=== PATIENT | female | born 2000 | race African-American/Black ===

== ENCOUNTER 2022-07-18 20:07 | Emergency (ER) | payer OTHER ==
[2022-07-18] MEDS ORDERED: Dexamethasone 4 MG TAB ONE (21:23)
== END 2022-07-18 21:20 | disposition home or self-care (01) ==
LOC: CSHERS 20:07
DX: J02.8 Acute pharyngitis due to other specified organisms (principal)
CPT/HCPCS: 99283; J8540

== ENCOUNTER 2022-07-22 08:01 | Emergency (ER) | payer OTHER | END 2022-07-22 09:05 | disposition home or self-care (01) | LOC: CSHERS 08:01 | DX: H10.9 Unspecified conjunctivitis (principal) | CPT/HCPCS: 99282 ==

== ENCOUNTER 2024-05-27 11:07 | Emergency (ER) | payer OTHER ==
[2024-05-27 12:02] LABS: Bilirubin Neg (Negative); Blood, Urine 250 (Negative); Clarity Slightly Cloudy (Clear); Glucose, Urine (Dipstick) Normal (Negative); Ketone, Urine Negative (Negative); Leukocyte 500 (Negative); Nitrite Negative (Negative); Protein, Urine (Dipstick) 15 mg/dl (Neg-Trace); Specific Gravity, Urine 1.015 (1.005-1.030); Urobilinogen Normal mg/dL (Less than 2)
[2024-05-27 12:10] LABS: Bacteria/HPF 2+ HPF (None Seen); CAUTI Indications for Culture Pregnancy; RBC/HPF 21-50 HPF (0-3); Squamous Epithelial 0-3 HPF (0-3)
[2024-05-27 12:11] LABS: Urine Culture Reflex Yes Yes
== END 2024-05-27 13:39 | disposition home or self-care (01) ==
LOC: CSHERS 11:07
DX: O23.41 Unspecified infection of urinary tract in pregnancy, first trimester (principal); N39.0 Urinary tract infection, site not specified; Z3A.00 Weeks of gestation of pregnancy not specified; Z55.6 Problems related to health literacy
CPT/HCPCS: 36415; 76856; 81001; 84702; 86850; 86900; 86901; 87086

== ENCOUNTER 2024-05-29 19:03 | Emergency (ER) | payer OTHER | END 2024-05-29 20:54 | disposition home or self-care (01) | LOC: CSHERS 19:03 | DX: O03.9 Complete or unspecified spontaneous abortion without complication (principal) | CPT/HCPCS: 36415; 84702; 99282 ==

== ENCOUNTER 2024-08-15 14:21 | Emergency (ER) | payer OTHER ==
[2024-08-15] MEDS ORDERED: predniSONE 20 MG TAB ONE (15:01)
[2024-08-15] MEDS ORDERED: Ondansetron ODT 4 MG TAB ONE (15:02)
[2024-08-15] MEDS ORDERED: Loratadine 10 MG TAB PO SCH (15:15)
== END 2024-08-15 16:24 | disposition home or self-care (01) ==
LOC: CSHERS 14:21
DX: L50.9 Urticaria, unspecified (principal)
CPT/HCPCS: 99283; J7512; Q0162

== ENCOUNTER 2024-08-16 00:35 | Emergency (ER) | payer OTHER ==
[2024-08-16] MEDS ORDERED: diphenhydrAMINE 50 MG/ML VIAL ONE (03:15)
[2024-08-16] MEDS ORDERED: Dexamethasone 10 MG/ML VIAL ONE (03:15)
[2024-08-16] MEDS ORDERED: Famotidine/PF 20 mg/2ml Vial ONE (03:15)
== END 2024-08-16 04:55 | disposition home or self-care (01) ==
LOC: CSHERS 00:35
DX: T78.40XA Allergy, unspecified, initial encounter (principal)
CPT/HCPCS: 96374; 96375; J1100; J1200; J3490

== ENCOUNTER 2024-08-16 16:06 | Emergency (ER) | payer OTHER ==
[2024-08-16] MEDS ORDERED: Famotidine/PF 20 mg/2ml Vial ONE (16:16)
[2024-08-16] MEDS ORDERED: EPINEPHrine 1 MG/ML VIAL ONE (16:16)
[2024-08-16] MEDS ORDERED: diphenhydrAMINE 50 MG/ML VIAL ONE (16:16)
[2024-08-16 16:33] LABS: BHCG - Serum Negative (NEGATIVE); Pregs Control Background? CLEAR/WHITE (CLR/WHITE); Pregs Control Bar Appear? YES (CONTROL BAR)
[2024-08-16 16:37] LABS: #Basophils 0.05 10x3/uL (0.0-0.2); #Eosinophils 0.05 10x3/uL (0.0-0.5); #Monocytes 1.97 10x3/uL (0.0-1.1); #Neutrophils 16.58 10x3/uL (1.5-8.4); %Basophils 0.2 % (0.0-2.0); %Eosinophils 0.2 % (0.0-6.0); %Lymphocytes 11.4 % (18.0-47.0); %Monocytes 9.3 % (0.0-10.0); %Neutrophils 78.5 % (40.0-75.0); Hematocrit 39.6 % (34.9-44.5); Hemoglobin 13.7 g/dL (12.0-15.5); Mean Corpuscular HGB CONC 34.6 g/dL (32.0-36.0); Mean Corpuscular Hemoglobin 30.4 pg (27.0-33.0); Mean Platelet Volume 9.3 fL (7.4-10.4); Platelet Count 420 10x3/uL (150-450); RBC Distribution Width 13.4 % (11.5-14.5); White Blood Cell (WBC) Count 21.1 10x3/uL (3.5-10.5)
[2024-08-16 16:38] LABS: ALT (SGPT) 7 U/L (8-55); AST (SGOT) 19 U/L (5-34); Albumin 4.2 g/dL (3.5-5.0); Alkaline Phosphatase 40 U/L (40-110); Anion Gap 16 mmol/L (10-20); BUN (Urea Nitrogen) 14 mg/dL (7.0-18.7); Bilirubin, Total 0.8 mg/dL (0.2-1.2); CK (CPK) 83 U/L (29-168); Calc. Creatinine Clearance 0 mL/min (70-130); Calcium 9.7 mg/dL (7.8-10.44); Carbon Dioxide 20 mmol/L (22-29); Chloride 104 mmol/L (98-107); Estimated GFR 87; Globulin 3.4 g/dL (2.4-3.5); Glucose 110 mg/dL (70-105); Potassium 3.7 mmol/L (3.5-5.1); Protein, Total 7.6 g/dL (6.0-8.3); Sodium 136 mmol/L (136-145)
== END 2024-08-16 19:13 | disposition left against medical advice (07) ==
LOC: CSHERS 16:06
DX: L50.0 Allergic urticaria (principal); T78.40XA Allergy, unspecified, initial encounter; R00.0 Tachycardia, unspecified; D72.829 Elevated white blood cell count, unspecified
CPT/HCPCS: 80053; 82550; 84145; 84703; 85025; 93005; 96372; 96374; 96375; J0171; J1200; J3490

== ENCOUNTER 2024-09-26 14:51 | Emergency (ER) | payer OTHER ==
[2024-09-26] MEDS ORDERED: Bupivacaine PF 0.5% 30 ML VIAL ONE (15:31)
[2024-09-26] MEDS ORDERED: Lidocaine 1% PF 5 ML VIAL ONE (15:31)
== END 2024-09-26 17:11 | disposition home or self-care (01) ==
LOC: CSHERS 14:51
DX: S16.1XXA Strain of muscle, fascia and tendon at neck level, initial encounter (principal); S09.90XA Unspecified injury of head, initial encounter; V48.5XXA Car driver injured in noncollision transport accident in traffic accident, initial encounter
CPT/HCPCS: 70450; 72125; J0665

== ENCOUNTER 2025-11-05 20:09 | Day surgery (SDC) | payer OTHER ==
[2025-11-05 20:43] VITALS: BMI 28.3
== END 2025-11-05 23:10 | disposition home or self-care (01) ==
LOC: CSHLD/OP 20:09
PROVIDERS: ATTEND Advanced Practice Midwife
DX: O47.1 False labor at or after 37 completed weeks of gestation (principal); O36.8130 Decreased fetal movements, third trimester, not applicable or unspecified; Z3A.38 38 weeks gestation of pregnancy; Z88.8 Allergy status to other drugs, medicaments and biological substances
CPT/HCPCS: 76819; 99283